=== PATIENT | female | born 1980 | race Two or more races ===

== ENCOUNTER 2018-06-09 01:24 | Emergency (ER) | payer SELFPAY ==
[~2018-06-09] VITALS: Ht 152.4 cm; Wt 59.6 kg
[~2018-06-09 01:24] MED LIST: OXYC-302 PO
--- NOTE | 2018-06-09 02:05 | NUR ---
PT HERE FOR MENSTRAL CYCLE THAT STARTED 05/20/18. PT HAS BEEN BLEEDING EVER SINCE. SOAKING 6-7 LARGE PADS A DAY WITH SOME CLOTS. PT DENIES PAIN OR URINARY SYMPTOMS. VSS. SPOUSE AT BEDSIDE. CALL LIGHT IN REACH
[2018-06-09 02:31] LABS: BASOPHILS # (AUTO) 0.05 x10^3/uL (0-0.1); BASOPHILS % (AUTO) 1 % (0-1); EOSINOPHILS % (AUTO) 3 % (1-7); LYMPHOCYTES # (AUTO) 3.14 x10^3/uL (1-3.4); LYMPHOCYTES % (AUTO) 31 % (22-44); MD NO; MEAN CORPUSCULAR HEMOGLOBIN 31.7 pg (27.0-34.8); MEAN CORPUSCULAR HGB CONC 34.7 g/dL (32.4-35.8); MEAN CORPUSCULAR VOLUME 91.5 fL (80-100); MEAN PLATELET VOLUME 7.7 fL (7.4-10.4); MONOCYTES # (AUTO) 0.47 x10^3/uL (0.2-0.8); MONOCYTES % (AUTO) 5 % (2-9); NEUTROPHILS # (AUTO) 6.17 x10^3/uL (1.8-6.8); NEUTROPHILS % (AUTO) 61 % (42-75); PLATELET COUNT 359 x10^3/uL (130-400); RED BLOOD COUNT 3.47 x10^6/uL (3.82-5.3); RED CELL DISTRIBUTION WIDTH 13.3 % (9.6-15.2)
--- NOTE | 2018-06-09 02:35 | NUR ---
UA SENT TO LAB
[2018-06-09 02:46] VITALS: BP 111/46
[2018-06-09 02:46] LABS: ALBUMIN 3.7 g/dL (3.4-5.0); ANION GAP 5 mmol/L (5-15); CALCIUM 9.3 mg/dL (8.5-10.1); CHLORIDE 103 mmol/L (98-107); CREATININE 0.74 mg/dL (0.55-1.02)
[2018-06-09 02:49] LABS: HCG UR SG 1.018 (1.003-1.030); MICROSCOPIC AUTO
[2018-06-09 02:50] LABS: CULTURE INDICATED? NO
--- NOTE | 2018-06-09 03:37 | NUR ---
Patient given discharge instructions and they have confirmed that they understand the instructions. Patient ambulatory with steady gait.
== END 2018-06-09 03:39 | disposition home or self-care (01) ==
LOC: ED 03:33
DX: N93.8 Other specified abnormal uterine and vaginal bleeding (principal)
CPT/HCPCS: 36415; 80048; 81001; 81025; 82040; 85025; 93005; 99284